=== PATIENT | male | born 1945 | race Caucasian/White ===

== ENCOUNTER 2018-08-01 06:02 | Day surgery (SDC) | payer BC ==
[~2018-08-01] VITALS: Ht 172.7 cm; Wt 71.5 kg
[~2018-08-01 06:02] MED LIST: AMOXICILLIN/CLA1 TA1 PO; NORCO 325 MG-51 TAB PO; ZOCOR10 MG PO; ZOLOFT50 MG PO
[2018-08-01] MEDS ORDERED: OSCAL 500 TAB500 MG (06:33)
[2018-08-01] MEDS ORDERED: ZYRTEC 10MG10 MG PO (06:34)
[2018-08-01 06:35] VITALS: BP 137/85; PULSE 62; TEMP 97.2
[2018-08-01 07:40] VITALS: BP 138/74; PULSE 65; TEMP 97.3
--- NOTE | 2018-08-01 07:40 | NUR ---
Patient arrives to [facility] via cart, accompanied by Endo RN Charis. Bedside report received. Patient ambulates to chair in room - monitoring applied - VSS and WNL on room air. He is drowsy, but oriented. brought to the bedside. Will continue to monitor.
[2018-08-01 07:55] VITALS: BP 116/73; PULSE 57
--- NOTE | 2018-08-01 07:55 | NUR ---
VSS and WNL on room air. Offered and receives coffee and toast - tolerates well. Denies any pain, nausea, or need.
[2018-08-01 08:10] VITALS: BP 123/76; PULSE 60
--- NOTE | 2018-08-01 08:10 | NUR ---
VSS and WNL on room air. Denies any pain, nausea, or need. Dr. Sierra at the bedside. Patient states, "I'm ready to go home". Discharge criteria has been met. PIV removed with catheter intact and hemostasis achieved. Discharge instructions discussed, denies any questions, and verbalizes understanding. Changing to clothing independently.
--- NOTE | 2018-08-01 08:33 | NUR ---
Escorted to exit via wheelchair. Discharged to home with ride in private vehicle at 0833.
== END 2018-08-01 08:33 | disposition home or self-care (01) ==
LOC: SDCO 06:02
DX: Z12.11 Encounter for screening for malignant neoplasm of colon (principal); Z86.010 Personal history of colon polyps
CPT/HCPCS: J2250; J3010